=== PATIENT | male | born 1955 | race Caucasian/White ===

== ENCOUNTER → 2020-06-12 | Day surgery (SDC) | payer BC ==
[2020-06-11 10:35] VITALS: BMI 38.5
--- OUTSIDE RECORDS SUMMARY | 2020-06-12 05:07 | XMS ---
:1955 Author Organization [facility] Support Name Relationship Address Phone [facility] Unavailable [address] [place] [address] YULY SINGLETARY [address] [place] [address] YULY SINGLETARY Spouse [address] [place] [address] Re-disclosure Warning The records that you are about to access may contain information from federally- assisted alcohol or drug abuse programs. If such information is present, then the following federally mandated warning applies: This information has been disclosed to you from records protected by federal confidentiality rules (42 CFR part 2). The federal rules prohibit you from making any further disclosure of this information unless further disclosure is expressly permitted by the written consent of the person to whom it pertains or as otherwise permitted by 42 CFR part 2. A general authorization for the release of medical or other information is NOT sufficient for this purpose. The Federal rules restrict any use of the information to criminally investigate or prosecute any alcohol or drug abuse patient.The records that you are about to access may contain highly sensitive health information, the redisclosure of which is protected by Article 27-F of the [facility] Public Health law. If you continue you may haveaccess to information: Regarding HIV / AIDS; Provided by facilities licensed or operated by the [facility] Office of Mental Health; or Provided by the [facility] Office for People With Developmental Disabilities. If such information is present, then the following [facility] mandated warning applies: This information has been disclosed to you from confidential records which are protected by state law. State law prohibits you from making any further disclosure of this information without the specific written consent of the person to whom it pertains, or as otherwise permitted by law. Any unauthorized further disclosure in violation of state law may result in a fine or care home sentence or both. A general authorization for the release of medical or other information is NOT sufficient authorization for further disclosure. Medications Medication Brand Start Product Dose Route Administrative Pharmacy atus Indications Reaction Description Data Name Date Form Instructions Instructions Source(s) ferrous FERROU 04/18/ TABLET 60 complet FERROUS [facility] (St sulfate 325 S 2019 ed SULFATE [facility] MG Oral SULFAT 12:00: Medical, Tablet E:3103 00 AM PC) FERROUS 25 EDT SULFATE:310 325 SUPREP 04/16/ LIQUID 1 complet SUPREP MANDY L [facility] (St BOWEL PREP 2019 ed PREP KIT [facility] KIT:[id number] 12:00: Medica l, 00 AM PC) EDT Insurance Providers Payer name Policy type Policy ID Covered Covered democrat's Policy P iker / Coverage democrat ID relationship to Pineda Inf ormation type pineda BC POS [id number] SP [id number] BC POS [id number] SP [id number] EMPIRE BCBS [id number] (PPO) 86 Problems, Conditions, and Diagnoses Code Display Name Description Problem Type Effective Data Sour ce(s) Dates R94.5 Abnormal results of ABNORMAL RESULTS OF Problem 020 [facility] (St liver function LIVER FUNCTION 12:00:00 AM [facility] studies STUDIES EDT Medical, ) K57.80 Diverticulitis of DIVERTICULITIS OF Problem 04/16/2020 [facility] ([address] intestine, part INTESTINE, PART 12:00:00 AM Jose n's unspecified, with UNSPECIFIED, WITH ED Medical, ) perforation and PERFORATION AND abscess without ABSCESS WITHOUT bleeding BLEEDING R94.5 Abnormal results of ABNORMAL RESULTS OF Problem 020 [facility] (St liver function LIVER FUNCTION 12:00:00 AM [facility] studies STUDIES EDT Medical, ) K57.80 Diverticulitis of DIVERTICULITIS OF Problem 04/16/2020 [facility] (St intestine, part INTESTINE, PART 12:00:00 AM Jose n's unspecified, with UNSPECIFIED, WITH ED Medical, ) perforation and PERFORATION AND abscess without ABSCESS WITHOUT bleeding BLEEDING R94.5 Abnormal results of ABNORMAL RESULTS OF Problem 020 [facility] (St liver function LIVER FUNCTION 12:00:00 AM [facility] studies STUDIES EDT Medical, ) K57.80 Diverticulitis of DIVERTICULITIS OF Problem 04/16/2020 [facility] (St intestine, part INTESTINE, PART 12:00:00 AM Jose n's unspecified, with UNSPECIFIED, WITH [facility] Medical, ) perforation and PERFORATION AND abscess without ABSCESS WITHOUT bleeding BLEEDING Surgeries/Procedures Procedure Description Date Indications Data Source(s) Documentation of current 04/16/2020 MED GEN ([facility] medications (procedure) 12:00:00 AM EDT [facility], ) Documentation of current 04/16/2020 MED [facility] ([facility] Documentation of current 04/16/2020 MED GEN ([facility]ava's medications (procedure) 12:00:00 [facility] Documentation of current 04/16/2020 MED GEN ([facility] medications (procedure) 12:00:00 AM [facility] Documentation of current 04/16/2020 MED GEN ([facility] medications (procedure) 12:00:00 [facility] Documentation of current 04/16/2020 MED GEN (Nava's medications (procedure) 12:00:00 AM EDT [facility], ) Documentation of current 04/16/2020 MED GEN (Nava's medications (procedure) 12:00:00 AM EDT [facility], ) Documentation of current 04/16/2020 MED GEN ([facility]ava's medications (procedure) 12:00:00 AM EDT [facility], ) Documentation of current 04/16/2020 MED [facility] ([facility] medications (procedure) 12:00:00 [facility] Results ID Date Data Source [id number] 06/07/2020 08:40:00 AM EDT [facility] Name Value Range Interpretation Description Data Sup porting Code Source(s) Document(s ) SARS [facility] coronavirus 2 RNA This lab was ordered by [facility] and reported by [facility]. ID Date Data Source [id number] 04/27/2020 09:02:00 AM EDT [facility] Name Value Range Interpretation Code Description Data Caity rce(s) Supporting Document(s ) 2019-nCoV [facility] RNA XXX ANABELLE+probe- Imp This lab was ordered by [facility] and reported by [facility]. ID Date Data Source [id number] 04/16/2020 12:00:00 AM EDT [facility] ([facility], ) Name Value Range Interpretation Description Data Sup porting Code Source(s) Document(s ) Erythrocytes 3.89 Below low normal [facility] (St [#/volume] in x10E6/uL [facility] Blood by Medical, ) Automated count Leukocytes 11.8 Above high normal [facility] (St [#/volume] in x10E3/uL [facility] Blood by [facility], ) Automated count MCV 87 fL Normal (applies [facility] (St to non-numeric [facility] results) Medical, ) Hematocrit 33.9 % Below low normal [facility] (St [Volume [facility] Fraction] of Medical, ) Blood by Automated count Hemoglobin 10.0 Below low normal [facility] (St [Mass/volume] in g/dL [facility] Blood [facility], ) MCH 25.7 pg Below low normal [facility] ([facility], ) MCHC 29.5 Below low normal [facility] (St g/dL [facility], ) RDW 15.1 % Normal (applies [facility] (St to non-numeric [facility] results) Medical, ) Neutrophils [#] 72 % Normal (applies [facility] ( St in Body fluid by to non-numeric [facility] Manual count results) Medical, ) Platelets 530 Above high normal [facility] (St [#/area] in x10E3/uL [facility], ) Microscopy high power field Monocytes 6 % Normal (applies [facility] (St [#/volume] in to non-numeric [facility] Cord blood results) Medical, ) Lymphs 18 % Normal (applies [facility] (St to non-numeric [facility] results) Medical, ) Neutrophils 8.5 Above high normal [facility] (St (Absolute) x10E3/uL [facility], ) Basos 1 % Normal (applies [facility] (St to non-numeric [facility] results) Medical, ) Eos 3 % Normal (applies [facility] (St to non-numeric [facility] results) Medical, ) Eos (Absolute) 0.4 Normal (applies [facility] (S t x10E3/uL to non-numeric [facility] results) Medical, PC) Lymphs 2.1 Normal (applies [facility] (St (Absolute) x10E3/uL to non-numeric [facility] results) Medical, PC) Monocytes(Absolu 0.7 Normal (applies [facility] (St te) x10E3/uL to non-numeric [facility] results) Medical, PC) Baso (Absolute) 0.1 Normal (applies [facility] ( St x10E3/uL to non-numeric [facility] results) Medical, PC) Immature 0 % Normal (applies [facility] (St Granulocytes to non-numeric [facility] results) Medical, PC) Immature Grans 0.0 Normal (applies [facility] (S t (Abs) x10E3/uL to non-numeric [facility] results) Medical, PC) ID Date Data Source [id number] 04/16/2020 12:00:00 AM EDT [facility] ([facility]) Name Value Range Interpretation Description Data Sup porting Code Source(s) Document(s ) Creatinine 0.97 Normal (applies [facility] (St [Interpretation] in mg/dL to non-numeric [facility] Urine results) Medical, PC) Urea nitrogen 13 mg/dL Normal (applies [facility] (St [Mass/volume] in to non-numeric [facility] Serum or Plasma results) Medical, PC) Glucose 90 mg/dL Normal (applies [facility] (St [Mass/volume] in to non-numeric [facility] Urine collected for results) Medical, unspecified PC) duration eGFR If Africn Am 96 Normal (applies [facility] (St mL/min/1 to non-numeric [facility] .73 results) Medical, PC) eGFR If NonAfricn 83 Normal (applies [facility] (St Am mL/min/1 to non-numeric [facility] .73 results) Medical, PC) Sodium 142 Normal (applies [facility] (St [Moles/volume] in mmol/L to non-numeric [facility] Serum or Plasma results) Medical, PC) BUN/Creatinine 13 Normal (applies [facility] (S t Ratio to non-numeric [facility] results) Medical, PC) Potassium 5.4 Above high [facility] (St [Mass/volume] in mmol/L normal [facility] Blood [facility], PC) Chloride 104 Normal (applies [facility] (St [Moles/volume] in mmol/L to non-numeric [facility] Serum or Plasma results) Medical, PC) Carbon dioxide, 23 Normal (applies [facility] ( St total mmol/L to non-numeric [facility] [Moles/volume] in results) Medical, Serum or Plasma PC) Protein 7.8 g/dL Normal (applies [facility] (St [Mass/volume] in to non-numeric [facility] Serum or Plasma results) Medical, PC) Calcium 9.7 Normal (applies [facility] (St [Moles/volume] in mg/dL to non-numeric [facility] Urine collected for results) Medical, unspecified PC) duration Globulin, Total 3.1 g/dL Normal (applies [facility] ( St to non-numeric [facility] results) Medical, PC) Microalbumin 4.7 g/dL Normal (applies [facility] (St [Mass/time] in to non-numeric [facility] Urine collected for results) Medical, unspecified PC) duration Alkaline 106 IU/L Normal (applies [facility] (St phosphatase to non-numeric [facility] [Enzymatic results) Medical, activity/volume] in PC) Serum, Plasma or Blood Bilirubin.total <0.2 Normal (applies [facility] ( St [Mass/volume] in to non-numeric [facility] Serum or Plasma results) Medical, PC) A/G Ratio 1.5 Normal (applies [facility] (St to non-numeric [facility] results) Medical, PC) Aspartate 24 IU/L Normal (applies [facility] (St aminotransferase to non-numeric [facility] [Enzymatic results) Medical, activity/volume] in PC) Serum or Plasma Alanine 25 IU/L Normal (applies [facility] (St aminotransferase to non-numeric [facility] [Enzymatic results) Medical, activity/volume] in PC) Serum or Plasma ID Date Data Source [id number] 02/18/2020 02:15:00 PM EDT [facility] Name Value Range Interpretation Description Data Sup porting Code Source(s) Document(s ) SARS [facility] CORONAVIRUS 2 RNA This lab was ordered by [facility] and reported by [facility]. ID Date Data Source [id number] 02/14/2020 07:03:00 PM EDT [facility] Name Value Range Interpretation Description Data Sup porting Code Source(s) Document(s ) SARS [facility] CORONAVIRUS 2 RNA This lab was ordered by [facility] and reported by [facility]. ID Date Data Source [id number] 01/30/2020 08:27:00 PM EDT [facility] Name Value Range Interpretation Description Data Sup porting Code Source(s) Document(s ) SARS [facility] CORONAVIRUS 2 RNA This lab was ordered by [facility] and reported by [facility]. Procedure Social History Code Duration Value Status Description Data Source(s ) Smoking 04/18/2020 denied smoke and completed denied smoke and ME DGEN (St 12:00:00 AM EDT illicit drugs used illicit drug s used [facility], drinks ocassionally drinks PC) ocassionally Smoking 04/18/2020 Unknown if ever completed Unknown if ever MEDG EN (St 12:00:00 AM EDT smoked smoked [facility], PC) Smoking 04/16/2020 denied smoke and completed denied smoke and ME DGEN (St 12:00:00 AM EDT illicit drugs used illicit drug s used [facility], drinks ocassionally drinks PC) ocassionally Smoking 04/16/2020 Unknown if ever completed Unknown if ever MEDG EN (St 12:00:00 AM EDT smoked smoked [facility], PC) Smoking 04/16/2020 denied smoke and completed denied smoke and ME DGEN (St 12:00:00 AM EDT illicit drugs used illicit drug s used [facility], drinks ocassionally drinks PC) ocassionally Smoking 04/16/2020 Unknown if ever completed Unknown if ever MEDG EN (St 12:00:00 AM EDT smoked smoked [facility], PC) Vital Signs ID Date Data Source UNK Name Value Range Interpretation Code Description Data Source(s) Heart rate 78 /min 78 /min [facility] ([facility] , [facility]) Inhaled oxygen 98 % 98 % [facility] (St concentration [facility], PC) Body mass index 39.3 kg/m2 39.3 kg/m2 [facility] (S t (BMI) [Ratio] [facility], PC) Diastolic blood 84 mm[Hg] 84 mm[Hg] [facility] (S t pressure [facility] , PC) Systolic blood 128 mm[Hg] 128 mm[Hg] [facility] (St pressure [facility] , [facility]) Body weight 306 lb 306 lb [facility] ([facility]) Body height 74 in 74 in [facility] ([facility]) Heart rate 78 /min 78 /min [facility] ([facility]) Inhaled oxygen 98 % 98 % [facility] ([facility]) Body mass index 39.3 kg/m2 39.3 kg/m2 [facility] (S t (BMI) [Ratio] [facility]) Diastolic blood 84 mm[Hg] 84 mm[Hg] [facility] (S t pressure [facility]) Systolic blood 128 mm[Hg] 128 mm[Hg] [facility] ([facility]) Body weight 306 lb 306 lb [facility] ([facility]) Body height 74 in 74 in [facility] ([facility]) Heart rate 78 /min 78 /min [facility] ([facility]) Inhaled oxygen 98 % 98 % [facility] ([facility]) Body mass index 39.3 kg/m2 39.3 kg/m2 [facility] (S t (BMI) [Ratio] [facility], ) Diastolic blood 84 mm[Hg] 84 mm[Hg] [facility] (S t pressure [facility]) Systolic blood 128 mm[Hg] 128 mm[Hg] [facility] ([facility]) Body weight 306 lb 306 lb [facility] ([facility]) Body height 74 in 74 in [facility] ([facility]) Heart rate 78 /min 78 /min [facility] ([facility]) Inhaled oxygen 98 % 98 % [facility] ([facility]) Body mass index 39.3 kg/m2 39.3 kg/m2 [facility] (S t (BMI) [Ratio] [facility]) Diastolic blood 84 mm[Hg] 84 mm[Hg] [facility] (S t pressure [facility]) Systolic blood 128 mm[Hg] 128 mm[Hg] [facility] ([facility]) Body weight 306 lb 306 lb [facility] ([facility]) Body height 74 in 74 in [facility] ([facility]) Heart rate 78 /min 78 /min [facility] ([facility]) Inhaled oxygen 98 % 98 % [facility] ([facility]) Body mass index 39.3 kg/m2 39.3 kg/m2 [facility] ([facility] (BMI) [Ratio] [facility]) Diastolic blood 84 mm[Hg] 84 mm[Hg] [facility] (S t [facility]) Systolic blood 128 mm[Hg] 128 mm[Hg] [facility] ([facility]) Body weight 306 lb 306 lb [facility] ([facility]) Body height 74 in 74 in [facility] ([facility])
[2020-06-12 09:50] VITALS: TEMP 98
[2020-06-12 10:46] VITALS: BP 109/59; PULSE 60
[2020-06-12 10:58] LABS: BASO % 1.1 % (0-2.0); EOS % 3.3 % (0-4.5); HEMATOCRIT 28.4 % (35.4-49); HEMOGLOBIN 8.9 GM/dL (11.7-16.9); LYMPH % 21.6 % (8-40); MCH 24.7 pg (25.7-33.7); MCHC 31.3 g/dl (32.0-35.9); MEAN CELL VOLUME 78.9 fl (80-96); MEAN PLT VOLUME 8.4 fl (7.5-11.1); MONO % 7.9 % (3.8-10.2); NEUT % 66.1 % (42.8-82.8); PLATELET COUNT 314 K/MM3 (134-434); RDW 19.1 % (11.9-15.9)
[2020-06-12 11:26] LABS: BLOOD UREA NITROGEN 10.7 mg/dL (7-18); CREATININE 0.9 mg/dL (0.55-1.3)
[2020-06-12 11:27] LABS: ALBUMIN 3.3 g/dl (3.4-5.0); BILIRUBIN,TOTAL 0.2 mg/dL (0.2-1); CALCIUM 9.1 mg/dL (8.5-10.1); POTASSIUM 4.1 mmol/L (3.5-5.1); TOT PROT 6.6 g/dl (6.4-8.2)
--- NOTE | 2020-06-13 16:29 | PATH ---
Surgical Pathology Report Patient Name: AXEL SINGLETARY [facility]. Rec. #: [id number] /Age/Gender: 1955 (Age: 64) / M Account: [id number] Location: ASU-ENDOSCOPY Taken: 06/12/2020 Received: 06/12/2020 Reported: 06/13/2020 Physicians: Lewis Herrera D.O. Specimen(s) Received SIGMOID/DESCENDING COLON MASS, 40-45 CM Clinical History Colon cancer screening Postoperative diagnosis: Colon mass, diverticulosis, polyp Final Diagnosis SIGMOID/DESCENDING COLON MASS, 40-45 CM, BIOPSY: ADENOCARCINOMA, MODERATELY DIFFERENTIATED. Comment: Case seen in intradepartmental review with consensus on diagnosis. Findings discussed with Dr. Herrera, 06/13/20. Additional studies for Mismatch repair proteins (MMR) are pending and will be reported as an addendum. Electronically Signed Laura Pearson M.D. Addendum Reported: 06/16/2020 Addendum Diagnosis Immunohistochemical stains for MisMatch Repair Protein Analysis performed at [facility] in [place], [place] ([id number]) and interpreted at [facility] show the following: RESULTS: HMLH-1 INTACT NUCLEAR EXPRESSION HMSH-2 INTACT NUCLEAR EXPRESSION HMSH-6 INTACT NUCLEAR EXPRESSION PMS2 INTACT NUCLEAR EXPRESSION INTERPRETATION: No loss of nuclear expression of MMR proteins: low probability of microsatellite instability-high (MSI-H) Laura Pearson M.D. Gross Description Received in formalin, labeled "biopsy sigmoid/descending colon mass at 40-45 cm" are 5 curran-brown, irregular portions of soft tissue ranging from 0.3-0.5 cm. in greatest dimension. The specimens are submitted in toto in one cassette. DL/06/12/2020 saudi/06/12/2020
--- NOTE | 2020-06-13 20:09 | PN ---
Progress Note (short form) - Note Progress Note: Called by Dr. Barriga from pathology. Biopsies of mass = adenoCa, moderately differentiated. This was discussed with Mr. Laraum. Is having CT abdomen with contrast tuesday. Would like to evaluate options for continued treatment [place] [facility] [place]. Will contact me Tuesday regarding this.
== END | disposition home or self-care (01) ==
LOC: JASU-ENDO 05:02
PROVIDERS: ATTEND Internal Medicine Gastroenterology
PROC: 0DBN8ZX Excision of Sigmoid Colon, Via Natural or Artificial Opening Endoscopic, Diagnostic (ICD-10-PCS; 2020-06-12)
PROC: 0DBM8ZX Excision of Descending Colon, Via Natural or Artificial Opening Endoscopic, Diagnostic (ICD-10-PCS; principal; 2020-06-12 09:00)
DX: Z12.11 Encounter for screening for malignant neoplasm of colon (principal); K57.30 Diverticulosis of large intestine without perforation or abscess without bleeding; D12.3 Benign neoplasm of transverse colon; K64.8 Other hemorrhoids; C18.6 Malignant neoplasm of descending colon; C18.7 Malignant neoplasm of sigmoid colon
CPT/HCPCS: 36415; 80053; 82378; 85025; 88305-TC